=== PATIENT | male | born 1945 | race Caucasian/White ===

== ENCOUNTER 2017-11-01 13:48 | Emergency (ER) | payer MEDICARE, BC ==
[2017-11-01 14:49] LABS: BILIRUBIN,URINE NEGATIVE (NEGATIVE); GLUCOSE, URINE (UA) NEGATIVE (NEGATIVE); KETONES,URINE (UA) 15 mg/dL (NEGATIVE); LEUKOCYTE ESTERASE, URINE MODERATE (NEGATIVE); NITRITE,URINE POSITIVE (NEGATIVE); OCCULT BLOOD,URINE LARGE (NEGATIVE); PH,URINE 5.5 PH (5.0-7.5); PROTEIN,URINE 30 mg/dL (NEGATIVE); UROBILINOGEN,URINE 0.2 (NORMAL) E.U./dL (NORMAL)
[2017-11-01 14:50] LABS: CLARITY,URINE CLOUDY (CLEAR)
[2017-11-01 15:19] LABS: BACTERIA,URINE Many /HPF (None Seen); RBC,URINE TNTC /HPF (0-5); SQUAMOUS EPITHELIAL CELL,UR NONE SEEN (<= Few)
[2017-11-01 15:53] LABS: BASOPHILS # (AUTO) 0.1 10^3/uL (0.0-0.1); BASOPHILS % (AUTO) 0.4 %; EOSINOPHILS % (AUTO) 0.1 %; HGB - HEMOGLOBIN 13.8 g/dL (14.0-18.0); LYMPHOCYTES # (AUTO) 1.3 10^3/uL (1.5-3.5); LYMPHOCYTES % (AUTO) 7.3 %; MEAN CORPUSCULAR HEMOGLOBIN 30.5 pg (27.0-31.0); MEAN CORPUSCULAR HGB CONC 33.6 g/dL (32.0-36.0); MEAN CORPUSCULAR VOLUME 90.8 fL (80.0-94.0); MEAN PLATELET VOLUME 6.4 fL (7.4-11.4); MONOCYTES % (AUTO) 5.8 %; NEUTROPHILS # (AUTO) 15.1 10^3/uL (1.5-6.6); NEUTROPHILS % (AUTO) 86.4 %; PLT - PLATELET COUNT 202 10^3/uL (130-450); RED BLOOD COUNT 4.52 10^6/uL (4.70-6.10); RED CELL DISTRIBUTION WIDTH 12.5 % (12.0-15.0); WHITE BLOOD COUNT 17.5 x10^3/uL (4.8-10.8)
[2017-11-01 16:08] LABS: ALBUMIN 4.2 g/dL (3.2-5.5); ALBUMIN/GLOBULIN RATIO 1.3 (1.0-2.2); ALKALINE PHOSPHATASE 61 IU/L (42-121); ALT ALANINE AMINOTRANSFERASE 23 IU/L (10-60); AST ASPARTATE AMINOTRANSFERASE 21 IU/L (10-42); BILIRUBIN,TOTAL 0.8 mg/dL (0.2-1.0); BUN - BLOOD UREA NITROGEN 18 mg/dL (6-20); CALCIUM 9.3 mg/dL (8.5-10.3); CARBON DIOXIDE - CO2 24 mmol/L (21-32); CHLORIDE 101 mmol/L (101-111); CREATININE 0.9 mg/dL (0.6-1.2); GFR - MDRD 83 (>89); GLUCOSE 200 mg/dL (70-100); SODIUM 136 mmol/L (135-145); TOTAL PROTEIN 7.5 g/dL (6.7-8.2)
[2017-11-01 16:09] LABS: LIPASE < 10 U/L (22-51)
--- NOTE | 2017-11-01 16:28 | ED Physician Documentation ---
History of Present Illness - Stated complaint Stated Complaint: BLOOD IN URINE - Chief complaint Chief Complaint: General - Additonal information Additional information: hx from pt 72 male to ER with hematuria, ryan low back / flank pain an dL testicular pain X 1 day generally feeling ill and "flu like" for a week no fever cough NVD on plavix Review of Systems Constitutional: denies: Fever, Chills Cardiac: denies: Chest pain / pressure Respiratory: denies: Dyspnea GI: denies: Abdominal Pain, Nausea, Vomiting, Diarrhea : reports: Dysuria, Hesitancy, Hematuria, Testicular pain Musculoskeletal: reports: Back pain Immunocompromised: denies: Immunocompromised PD PAST MEDICAL HISTORY - Past Medical History Cardiovascular: High cholesterol Neuro: CVA, Seizure disorder Endocrine/Autoimmune: Type 2 diabetes : Benign prostate hypertrophy Musculoskeletal: Osteoarthritis - Past Surgical History General: Appendectomy Ortho: Spine surgery HEENT: Cataracts, Tonsil/Adenoidectomy - Present Medications Home Medications: Ambulatory Orders Medication Instructions Recorded Confirmed Atorvastatin [Lipitor] 11/01/17 Ciprofloxacin HCl [Cipro] 500 mg PO BID #20 tablet 11/01/17 Clopidogrel Bisulfate [Clopidogrel] 11/01/17 Finasteride [Proscar] 11/01/17 Insulin Glargine [Lantus Solostar] 11/01/17 Levetiracetam [Keppra] 11/01/17 Losartan Potassium 11/01/17 Metformin HCl [Fortamet] 11/01/17 Tamsulosin [Flomax] 11/01/17 - Allergies Allergies/Adverse Reactions: Allergies Allergy/AdvReac Type Severity Reaction Status Date / Time No Known Drug Allergies Allergy Verified 11/01/17 14:05 - Social History Does the pt smoke?: No Smoking Status: Never smoker Does the pt drink ETOH?: No Does the pt have substance abuse?: No PD ED PE NORMAL - Vitals Vital signs reviewed: Yes - General General: Alert and oriented X 3 - Neck Neck: Supple, no meningeal sign - Cardiac Cardiac: RRR - Respiratory Respiratory: No respiratory distress, Clear bilaterally - Abdomen Abdomen: Soft, Non tender, Other (no pulsatile mass) - Male Male : Other (L testes nl lie no mass but very TTP) - Back Back: No CVA TTP (mild bilateral) - Derm Derm: Normal color - Neuro Neuro: Alert and oriented X 3 Results - Vitals Vitals: Vital Signs - 24 hr 11/01/17 11/01/17 11/01/17 14:03 16:04 18:11 Temperature 37.1 C 36.8 C 37.4 C Heart Rate 102 H 81 84 Respiratory 18 18 14 Rate Blood Pressure 126/81 H 157/78 H 125/72 O2 Saturation 95 95 94 Oxygen O2 Source Room air - Labs Labs: Laboratory Tests 11/01/17 11/01/17 11/01/17 14:14 15:46 15:46 WBC 17.5 H RBC 4.52 L Hgb 13.8 L Hct 41.0 L MCV 90.8 MCH 30.5 MCHC 33.6 RDW 12.5 Plt Count 202 MPV 6.4 L Neut # 15.1 H Lymph # 1.3 L Rankin # 1.0 Eos # 0.0 Baso # 0.1 Absolute Nucleated RBC 0.00 Nucleated RBC % 0.0 Sodium 136 Potassium 4.7 Chloride 101 Carbon Dioxide 24 Anion Gap 11.0 BUN 18 Creatinine 0.9 Estimated GFR (MDRD) 83 L Glucose 200 H Calcium 9.3 Total Bilirubin 0.8 AST 21 ALT 23 Alkaline Phosphatase 61 Total Protein 7.5 Albumin 4.2 Globulin 3.3 Albumin/Globulin Ratio 1.3 Lipase < 10 L Urine Color BROWN Urine Clarity CLOUDY Urine pH 5.5 Ur Specific [place] >=1.030 H Urine Protein 30 H Urine Glucose (UA) NEGATIVE Urine Ketones 15 H Urine Occult Blood LARGE H Urine Nitrite POSITIVE H Urine Bilirubin NEGATIVE Urine Urobilinogen 0.2 (NORMAL) Ur Leukocyte Esterase MODERATE H Urine RBC TNTC H Urine WBC >25 H Ur Squamous Epith Cells NONE SEEN Urine Bacteria Many H Ur Microscopic Review INDICATED Urine Culture Comments INDICATED - Rads (name of study) CT AP stone study Radiology: See rad report (bladder base filling defect contiguous with prostate and concerning for neoplasm, unremarkable kidneys, no stones, other chronic or incidental findings such as old transverse process fxs at L1-L4) sono Radiology: See rad report (small ryan hydrocele, bilateral microcalcifications doubtful clinical significance, small right paratesticualr nodule non specific, ddx includes fibrous pseudotumor + others er radia, rec fup exam in 6 m (pt advised)) Departure - Departure Disposition: 01 Home, Self Care Clinical Impression: UTI (urinary tract infection) Qualifiers: Urinary tract infection type: site unspecified Hematuria presence: with hematuria Qualified Code(s): N39.0 - Urinary tract infection, site not specified ; R31.9 - Hematuria, unspecified; R31.9 - Hematuria, unspecified Hematuria Qualifiers: Hematuria type: unspecified type Qualified Code(s): R31.9 - Hematuria, unspecified Instructions: ED UTI Cystitis Male Follow-Up: [facility] [Provider Group] Prescriptions: Ciprofloxacin HCl [Cipro] 500 mg PO BID #20 tablet Comments: The urine test showed blood and also an infection - so we started antibiotics. The CT scan did not show any kidney stones but did show an abnormal prostate which will need further work up by the urologist to be sure there is not a prostate cancer. The ultrasound did not show any tumors, just a little bit of fluid around the testicles and a small nodule on the right and the radiologist recommends a repeat ultrasound in 6 months to recheck the nodule Your kidney function was fine on your blood work. You hemoglobin level was fine - you have not lost too much blood Your white blood cell count was elevated which is consistent with an infection So it is OK for you to go home on an antibiotic. I chose cipro because it penetrates the prostate well. But the class of antibiotics that cipro belongs to (the quinolones) can have side effects including nerve and tendon damage - if you develop any pains in your joints please stop the antibiotic right away and call your PMD or the ER to change to another antibiotic You should also take a probiotic while on cipro to prevent diarrhea Most importantly you need to follow up with a urologist for further evaluation and care of this infection an the abnormal prostate - please call the [facility] line to make an appointment with the urologists. Depending on your insurance, you may need a referral from your PMD
--- NOTE | 2017-11-01 18:17 | Ultrasound Report ---
EXAM: SCROTAL ULTRASOUND EXAM DATE: 11/01/2017 04:18 PM. CLINICAL HISTORY: L testicular pain. COMPARISON: None. TECHNIQUE: Real-time scanning was performed with static images obtained. Both color-flow and Doppler spectral analysis were utilized. FINDINGS: Right: Testis: 4.3 x 2.7 x 2.4 cm. Several microcalcifications. Otherwise unremarkable parenchyma. Normal va scularity. Epididymis: 0.9 x 0.9 x 0.6 cm. Small cysts measuring 0.6 x 0.5 x 0.9 cm and 0.7 x 0.7 x 0.7 cm. Othe rwise unremarkable. Hydrocele: Trace hydrocele. Varicocele: None. Left: Testis: 3.7 x 2.5 x 2.9 cm. Several microcalcifications. Otherwise unremarkable parenchyma. Normal va scularity. Epididymis: 1.2 x 0.9 x 0.7 cm. Normal size and echotexture. No mass or abnormal blood flow. Hydrocele: Small hydrocele. Varicocele: None. Other: Slightly lobulated right paratesticular nodule measuring 0.7 x 0.3 x 0.3 cm. This may be relat ed to the inner surface of the scrotal wall. IMPRESSION: 1. Small left hydrocele; trace right hydrocele. 2. Several bilateral microcalcifications, a nonspecific finding of doubtful clinical significance. 3. Small right paratesticular nodule, also a nonspecific finding. Differential considerations include fibrous pseudotumor and several other possibilities. Follow-up exam in about 6 months is recommended to evaluate stability of this finding. [facility] Referring Provider Line: [phone] SITE ID: [id number]
--- NOTE | 2017-11-01 18:24 | CT Report ---
EXAM: CT ABDOMEN AND PELVIS (CT KUB) EXAM DATE: 11/01/2017 05:48 PM. CLINICAL HISTORY: Back pain to l testicle and hematuria. COMPARISONS: None. TECHNIQUE: Routine axial helical CT imaging was performed through the abdomen and pelvis without IV c ontrast. Reconstructions: Coronal and sagittal. In accordance with CT protocol optimization, one or more of the following dose reduction techniques w ere utilized for this exam: automated exposure control, adjustment of mA and/or KV based on patient s ize, or use of iterative reconstructive technique. FINDINGS: Lung Bases: Unremarkable. Right Kidney/Ureter: No stones, hydronephrosis, or hydroureter. No perinephric fat stranding. Left Kidney/Ureter: No stones, hydronephrosis, or hydroureter. No perinephric fat stranding. Other Solid Organs: Noncontrast images of the solid organs are grossly unremarkable. Gallbladder/Bile Ducts: Unremarkable. Peritoneal Cavity: No free fluid, free air or ivette adenopathy. Unremarkable region of appendix. Mild diverticulosis. Bowel otherwise is grossly unremarkable. Pelvic Organs: Masslike filling defect in the bladder base measuring about 4 cm in diameter, contiguo us with the prostate and possibly arising from it. Otherwise unremarkable. Vasculature: Unremarkable. Other: Degenerative changes. Old ununited right transverse process fractures of L1-L4. IMPRESSION: 1. Bladder base filling defect contiguous with the prostate, suspicious for neoplasm. 2. Unremarkable kidneys; no stone or hydronephrosis. 3. Other chronic or incidental findings. [facility] Referring Provider Line: [phone] SITE ID: [id number]
[2017-11-01] MEDS ORDERED: CIPROFLOXACIN 250 MG TABLET PO STA (18:45)
[2017-11-01 19:50] VITALS: BP 139/73
== END 2017-11-01 19:55 | disposition home or self-care (01) ==
LOC: ED 13:48
DX: N39.0 Urinary tract infection, site not specified (principal); R31.9 Hematuria, unspecified; E78.00 Pure hypercholesterolemia, unspecified; E11.9 Type 2 diabetes mellitus without complications; Z79.4 Long term (current) use of insulin; Z86.73 Personal history of transient ischemic attack (TIA), and cerebral infarction without residual deficits
CPT/HCPCS: 36415; 74176; 76870; 80053; 81001; 83690; 85025; 87086; 93975; 99283; 99284; A9270; 80048; 81003

== ENCOUNTER 2018-06-21 09:57 | Outpatient (CLI) | payer MEDICARE, BC ==
[2018-06-21 10:33] LABS: BASOPHILS # (AUTO) 0.1 10^3/uL (0.0-0.1); BASOPHILS % (AUTO) 0.7 %; EOSINOPHILS # (AUTO) 0.2 10^3/uL (0.0-0.7); EOSINOPHILS % (AUTO) 2.9 %; HGB - HEMOGLOBIN 13.8 g/dL (14.0-18.0); LYMPHOCYTES # (AUTO) 1.9 10^3/uL (1.5-3.5); LYMPHOCYTES % (AUTO) 22.5 %; MEAN CORPUSCULAR HEMOGLOBIN 31.2 pg (27.0-31.0); MEAN CORPUSCULAR HGB CONC 34.5 g/dL (32.0-36.0); MEAN CORPUSCULAR VOLUME 90.5 fL (80.0-94.0); MEAN PLATELET VOLUME 6.7 fL (7.4-11.4); MONOCYTES # (AUTO) 0.6 10^3/uL (0.0-1.0); MONOCYTES % (AUTO) 7.3 %; NEUTROPHILS # (AUTO) 5.6 10^3/uL (1.5-6.6); NEUTROPHILS % (AUTO) 66.6 %; PLT - PLATELET COUNT 226 10^3/uL (130-450); RED BLOOD COUNT 4.42 10^6/uL (4.70-6.10); RED CELL DISTRIBUTION WIDTH 12.8 % (12.0-15.0); WHITE BLOOD COUNT 8.5 x10^3/uL (4.8-10.8)
[2018-06-21 10:52] LABS: ALBUMIN 3.9 g/dL (3.2-5.5); ALBUMIN/GLOBULIN RATIO 1.3 (1.0-2.2); BILIRUBIN,TOTAL 0.7 mg/dL (0.2-1.0); CALCIUM 9.1 mg/dL (8.5-10.3); CREATININE 0.8 mg/dL (0.6-1.2); TOTAL PROTEIN 6.9 g/dL (6.7-8.2)
== END 2018-06-21 09:58 | disposition home or self-care (01) ==
LOC: LAB 09:57
PROVIDERS: ATTEND Psychiatry & Neurology Neurology
DX: G40.909 Epilepsy, unspecified, not intractable, without status epilepticus (principal)
CPT/HCPCS: 36415; 80053; 80175; 85025

== ENCOUNTER 2018-07-13 08:59 | Outpatient (CLI) | payer MEDICARE, BC ==
[2018-07-13 09:28] LABS: BASOPHILS % (AUTO) 0.6 %; EOSINOPHILS # (AUTO) 0.2 10^3/uL (0.0-0.7); EOSINOPHILS % (AUTO) 2.8 %; HGB - HEMOGLOBIN 13.8 g/dL (14.0-18.0); LYMPHOCYTES # (AUTO) 1.8 10^3/uL (1.5-3.5); MEAN CORPUSCULAR HEMOGLOBIN 31.1 pg (27.0-31.0); MEAN CORPUSCULAR HGB CONC 34.6 g/dL (32.0-36.0); MEAN PLATELET VOLUME 6.7 fL (7.4-11.4); MONOCYTES # (AUTO) 0.6 10^3/uL (0.0-1.0); MONOCYTES % (AUTO) 7.6 %; NEUTROPHILS # (AUTO) 4.7 10^3/uL (1.5-6.6); PLT - PLATELET COUNT 215 10^3/uL (130-450); RED BLOOD COUNT 4.42 10^6/uL (4.70-6.10); RED CELL DISTRIBUTION WIDTH 12.9 % (12.0-15.0); WHITE BLOOD COUNT 7.3 x10^3/uL (4.8-10.8)
[2018-07-13 09:41] LABS: ALBUMIN 4.2 g/dL (3.2-5.5); ALBUMIN/GLOBULIN RATIO 1.4 (1.0-2.2); BILIRUBIN,TOTAL 0.8 mg/dL (0.2-1.0); CALCIUM 9.3 mg/dL (8.5-10.3); CREATININE 0.8 mg/dL (0.6-1.2); TOTAL PROTEIN 7.3 g/dL (6.7-8.2)
== END 2018-07-13 09:00 | disposition home or self-care (01) ==
LOC: LAB 08:59
PROVIDERS: ATTEND Psychiatry & Neurology Neurology
DX: G40.909 Epilepsy, unspecified, not intractable, without status epilepticus (principal)
CPT/HCPCS: 36415; 80053; 80175; 85025

== ENCOUNTER 2022-07-11 16:15 | Outpatient (CLI) | payer MEDICARE, BC | END 2022-07-11 16:16 | disposition critical access hospital (66) | LOC: EMS 16:15 | DX: R53.1 Weakness (principal); R30.0 Dysuria; R39.198 Other difficulties with micturition; R50.9 Fever, unspecified | CPT/HCPCS: A0425; A0427 ==

== ENCOUNTER 2022-07-19 12:45 | Emergency (ER) | payer MEDICARE, BC ==
--- OUTSIDE RECORDS SUMMARY | 2022-07-19 13:14 | EXTERNAL MEDICAL SUMMARY RPT | Continuity of Care Document ---
:1945 Author Organization [facility] Address [address] [place] [address] Phone Care Team Providers Name Role Phone Unavailable Unavailable Unavailable NurseJaqui Unavailable Unavailable NurseJaqui Unavailable Unavailable Allergies No information. Encounters No information. Functional Status No information. Immunizations No information. Medications date description facility [id number]+0000 azithromycin All 23843383555187+0000 azithromycin All 66390958612539+0000 insulin glargine All 99172318536512+0000 insulin glargine All 59569187456107+0000 tramadol All 44310647044061+0000 tramadol All 35468361400217+0000 finasteride All 53133007197611+0000 finasteride All 42409003466648+0000 levetiracetam All 93565726135973+0000 levetiracetam All 69727508931788+0000 azithromycin All 73854692191429+0000 azithromycin All 51517617207818+0000 tamsulosin All 59408218177455+0000 tamsulosin All 69297699266662+0000 insulin glargine All 64431787447700+0000 insulin glargine All 93964519385789+0000 azithromycin All 02493511100622+0000 azithromycin All 13409845206349+0000 atorvastatin All 73836246572483+0000 atorvastatin All 38074134536111+0000 insulin glargine All 41371211868312+0000 insulin glargine All 83621886358536+0000 metformin All 34463001022164+0000 metformin All 26265571359618+0000 finasteride All 17254705460561+0000 finasteride All 27615029080371+0000 clopidogrel All 96101015593722+0000 clopidogrel All 98266776611176+0000 finasteride All 52613219801693+0000 finasteride All 80951863719839+0000 levetiracetam All 94777038869432+0000 levetiracetam All 48460468450402+0000 zolpidem All 69179231340928+0000 zolpidem All 00521391198796+0000 losartan All 53377789690123+0000 losartan All 75618181106835+0000 tramadol All 34801925611701+0000 tramadol All 49071770174530+0000 atorvastatin All 95792974978855+0000 atorvastatin All 07584828843003+0000 losartan All 31521618836293+0000 losartan All 93099861414156+0000 pseudoephedrine hcl All 45371191102236+0000 pseudoephedrine hcl All 70223112486167+0000 azithromycin All 28335217877912+0000 azithromycin All 06432879343492+0000 clopidogrel All 87957980419212+0000 clopidogrel All 58564010717715+0000 zolpidem All 22660413486521+0000 zolpidem All 19338671585935+0000 finasteride All 92241169704619+0000 finasteride All 40832679229617+0000 tamsulosin All 35219132358764+0000 tamsulosin All 51013487825186+0000 zolpidem All 59077128525319+0000 zolpidem All 30144798231325+0000 clopidogrel All 91376622753947+0000 clopidogrel All 79000041516652+0000 levetiracetam All 93835609893357+0000 levetiracetam All 29925762146545+0000 metformin All 14816387022005+0000 metformin All 02625200875667+0000 atorvastatin All 04450240413537+0000 atorvastatin All 10844890743895+0000 tamsulosin All 06583266079174+0000 tamsulosin All 16987085412088+0000 tramadol All 63974191803330+0000 tramadol All 54668055322565+0000 atorvastatin All 81942058557210+0000 atorvastatin All 57760901114087+0000 metformin All 80645120142929+0000 metformin All 48733449862155+0000 losartan All 78436135187572+0000 losartan All 86009771283084+0000 levetiracetam All 47907556958164+0000 levetiracetam All 87008279116331+0000 tramadol All 04933931817040+0000 tramadol All 55911693445118+0000 insulin glargine All 74402770795862+0000 insulin glargine All 38287504860586+0000 clopidogrel All 15045590553863+0000 clopidogrel All 86876393503887+0000 zolpidem All 80748904007228+0000 zolpidem All 79433588149962+0000 metformin All 94810953579971+0000 metformin All 24152586212726+0000 tamsulosin All 40117288698770+0000 tamsulosin All 47924755435600+0000 losartan All 35595006883203+0000 losartan All Problems No information. Procedures date description facility [id number]+0000 Visit Code Hold All 84642106889619+0000 Visit Code Hold All 95927232566551+0000 POC STREP TEST All 83332166889617+0000 POC STREP TEST All Results/Labs No information. Social History date description facility 05333818714781+0000 Unknown if ever smoked All 83374847019597+0000 Unknown if ever smoked All Vital Signs date measurement value units 24751080712908+0000 BMI BMI 32.67 kg/m2 84514029579028+0000 BP_diastolic BP_diastolic 74 mmHg 09453865255237+0000 BP_systolic BP_systolic 120 mmHg 39881289077109+0000 heart_rate heart_rate 92 /min 22710469173792+0000 height_metric height_metric 182.88 cm 92336375475982+0000 height_standard height_standard 72 in 10789125340835+0000 respiration_rate respiration_rate 16 /min 22924947125701+0000 temperature_metric temperature_metric 37.11 C 85214302490548+0000 temperature_standard temperature_standard 9 8.8 F 41382518980580+0000 weight_metric weight_metric 108.86 kg 85429502051709+0000 weight_standard weight_standard 240 lb
[2022-07-19 15:23] LABS: BILIRUBIN,URINE NEGATIVE (NEGATIVE); GLUCOSE, URINE (UA) NEGATIVE (NEGATIVE); KETONES,URINE (UA) NEGATIVE (NEGATIVE); LEUKOCYTE ESTERASE, URINE SMALL (NEGATIVE); NITRITE,URINE NEGATIVE (NEGATIVE); OCCULT BLOOD,URINE LARGE (NEGATIVE); PH,URINE 5.5 PH (5.0-7.5); PROTEIN,URINE TRACE mg/dL (NEGATIVE); UROBILINOGEN,URINE 0.2 (NORMAL) E.U./dL (NORMAL)
[2022-07-19 15:25] LABS: CLARITY,URINE CLOUDY (CLEAR)
[2022-07-19 15:33] LABS: BACTERIA,URINE Rare /HPF (None Seen); RBC,URINE TNTC /HPF (0-5); SQUAMOUS EPITHELIAL CELL,UR RARE Squamous (<= Few)
--- NOTE | 2022-07-19 15:48 | ED Physician Documentation ---
PD HPI MALE - Stated complaint Stated Complaint: MALE - Chief complaint Chief Complaint: UTI - History obtained from History obtained from: Patient - Additional information Additional information: 77-year-old gentleman with history of BPH had a multilevel laminectomy June 13 at [facility]. Subsequently and related to his catheterization perioperatively he developed 5 days of hematuria with clots. That went away but was seen by my partner about a week ago for dysuria and hematuria and. Had a positive urinalysis and was prescribed Keflex, subsequently changed to Vantin after sensitivities. He was doing okay but developed more hematuria today with dysuria. No fevers, flank pain, chills, rectal pain, or pain with bowel movement. Review of Systems Constitutional: reports: Reviewed and negative Nose: reports: Reviewed and negative Cardiac: reports: Reviewed and negative PD PAST MEDICAL HISTORY - Past Medical History Cardiovascular: High cholesterol Endocrine/Autoimmune: Type 2 diabetes : Benign prostate hypertrophy Musculoskeletal: Osteoarthritis - Past Surgical History General: Appendectomy Ortho: Spine surgery HEENT: Cataracts, Tonsil/Adenoidectomy - Present Medications Home Medications: Ambulatory Orders Medication Instructions Recorded Confirmed Atorvastatin [Lipitor] 11/01/17 Ciprofloxacin HCl [Cipro] 500 mg PO BID #20 tablet 11/01/17 Clopidogrel Bisulfate [Clopidogrel] 11/01/17 Finasteride [Proscar] 11/01/17 Insulin Glargine [Lantus Solostar] 11/01/17 Levetiracetam [Keppra] 11/01/17 Losartan Potassium 11/01/17 Metformin HCl [Fortamet] 11/01/17 Tamsulosin [Flomax] 11/01/17 cephALEXin [Keflex] 500 mg PO Q6H #20 cap 07/11/22 Ciprofloxacin HCl [Cipro] 500 mg PO BID #20 tablet 07/19/22 - Allergies Allergies/Adverse Reactions: Allergies Allergy/AdvReac Type Severity Reaction Status Date / Time diphenhydramine Allergy Unknown Verified 07/19/22 13:02 [From Benadryl] - Social History Does the pt smoke?: No Smoking Status: Never smoker Does the pt drink ETOH?: No Does the pt have substance abuse?: No PD ED PE NORMAL - Vitals Vital signs reviewed: Yes - General General: Alert and oriented X 3, No acute distress - Abdomen Abdomen: Normal bowel sounds, Soft, Non tender - Male Male : Other (Bedside ultrasound shows a thick-walled bladder with a large mass emanating from the posterior wall of the bladder. This was discussed with the patient.) - Neuro Neuro: Alert and oriented X 3, Normal speech Results - Vitals Vitals: Vital Signs - 24 hr 07/19/22 07/19/22 12:57 15:56 Temperature 36.5 C 36.6 C Heart Rate 92 89 Respiratory 16 16 Rate Blood Pressure 146/76 H 129/81 H O2 Saturation 97 97 Oxygen O2 Source Room air - Labs Labs: Laboratory Tests 07/19/22 13:15 Urine Color BROWN Urine Clarity CLOUDY Urine pH 5.5 Ur Specific [place] 1.025 Urine Protein TRACE Urine Glucose (UA) NEGATIVE Urine Ketones NEGATIVE Urine Occult Blood LARGE H Urine Nitrite NEGATIVE Urine Bilirubin NEGATIVE Urine Urobilinogen 0.2 (NORMAL) Ur Leukocyte Esterase SMALL H Urine RBC TNTC H Urine WBC 11-25 H Ur Squamous Epith Cells RARE Squamous Urine Bacteria Rare Ur Microscopic Review INDICATED Urine Culture Comments INDICATED PD MEDICAL DECISION MAKING - ED course ED course: Discussed with patient's that on bedside ultrasound he does have what looks like a large bladder mass, and needs urology follow-up. Will trial Cipro in the interim but he understands that antibiotics will not cure that. Departure - Departure Disposition: 01 Home, Self Care Clinical Impression: Bladder mass Hematuria Qualifiers: Hematuria type: gross Qualified Code(s): R31.0 - Gross hematuria Condition: Good Prescriptions: Ciprofloxacin HCl [Cipro] 500 mg PO BID #20 tablet Comments: As discussed, you were seen today for recalcitrant UTI associated with blood in the urine. Unfortunately on bedside ultrasound today I do see a decent sized mass in your bladder. Call your urologist at the [facility] today or tomorrow for expedited follow-up for cystoscopy or what ever other work-up they think is appropriate. Return for new or worsening symptoms. I sent your prescription electronically to [facility] in [place]. Discharge Date/Time: 07/19/22 15:58
[2022-07-19 15:57] VITALS: BP 129/81
--- NOTE | 2022-07-20 16:16 | ED Physician Documentation ---
ED Addendum - Addendum Addendum: 07/20/22 16:16 RN took call from , the Cipro was making his voice horse so I changed him over to Macrobid 100 mg p.o. twice daily #20 and E prescribed to [facility] in [place].
== END 2022-07-19 15:58 | disposition home or self-care (01) ==
LOC: ED 12:45
DX: N32.89 Other specified disorders of bladder (principal); R31.0 Gross hematuria; R30.0 Dysuria; N40.0 Benign prostatic hyperplasia without lower urinary tract symptoms; E11.9 Type 2 diabetes mellitus without complications; Z79.4 Long term (current) use of insulin; Z79.84 Long term (current) use of oral hypoglycemic drugs
CPT/HCPCS: 81001; 81003; 87086; 99283

== ENCOUNTER 2023-03-17 16:30 | Outpatient (CLI) | payer MEDICARE, BC | END 2023-03-17 16:45 | disposition home or self-care (01) | LOC: LAB.N 16:30 | PROVIDERS: ATTEND Nurse Practitioner | DX: N39.0 Urinary tract infection, site not specified (principal) | CPT/HCPCS: 87077; 87086; 87181 ==

== ENCOUNTER 2023-04-13 08:06 | Outpatient (CLI) | payer MEDICARE, BC ==
[2023-04-13 08:19] LABS: BASOPHILS # (AUTO) 0.1 10^3/uL (0.0-0.1); BASOPHILS % (AUTO) 0.8 %; EOSINOPHILS # (AUTO) 0.6 10^3/uL (0.0-0.7); EOSINOPHILS % (AUTO) 8.7 %; HCT - HEMATOCRIT 41.7 % (42.0-52.0); HGB - HEMOGLOBIN 13.6 g/dL (14.0-18.0); LYMPHOCYTES % (AUTO) 27.3 %; MEAN CORPUSCULAR HEMOGLOBIN 30.2 pg (27.0-31.0); MEAN CORPUSCULAR HGB CONC 32.6 g/dL (32.0-36.0); MEAN CORPUSCULAR VOLUME 92.7 fL (80.0-94.0); MEAN PLATELET VOLUME 8.4 fL (7.4-11.4); MONOCYTES # (AUTO) 0.7 10^3/uL (0.0-1.0); NEUTROPHILS # (AUTO) 3.9 10^3/uL (1.5-6.6); NEUTROPHILS % (AUTO) 52.8 %; PLT - PLATELET COUNT 215 10^3/uL (130-450); RED CELL DISTRIBUTION WIDTH 12.2 % (12.0-15.0); WHITE BLOOD COUNT 7.4 x10^3/uL (4.8-10.8)
[2023-04-13 08:32] LABS: ALBUMIN/GLOBULIN RATIO 1.5 (1.0-2.2); ALKALINE PHOSPHATASE 88 IU/L (42-121); ALT ALANINE AMINOTRANSFERASE 20 IU/L (10-60); AST ASPARTATE AMINOTRANSFERASE 17 IU/L (10-42); BILIRUBIN,TOTAL 0.4 mg/dL (0.2-1.0); BUN - BLOOD UREA NITROGEN 18 mg/dL (6-20); CARBON DIOXIDE - CO2 29 mmol/L (21-32); CHLORIDE 105 mmol/L (101-111); CHOL/HDL RATIO 2.6 (<5.0); CHOLESTEROL 95 mg/dL; CREATININE 0.9 mg/dL (0.6-1.3); GFR - MDRD 82 (>89); GLUCOSE 117 mg/dL (74-104); HDL CHOLESTEROL 36 mg/dL; LDL CHOLESTEROL,CALCULATED 42 mg/dL; LDL/HDL RATIO 1.2 (<3.6); POTASSIUM 4.4 mmol/L (3.5-4.5); SODIUM 138 mmol/L (135-145); TOTAL PROTEIN 6.6 g/dL (6.4-8.9); TRIGLYCERIDES 85 mg/dL (48-352); VLDL CHOLESTEROL 17 mg/dL
[2023-04-13 11:23] LABS: ESTIMATED AVERAGE GLUCOSE 171 mg/dL (70-100); HEMOGLOBIN A1c% 7.6 % (4.27-6.07)
== END 2023-04-13 08:07 | disposition home or self-care (01) ==
LOC: LAB 08:06
PROVIDERS: ATTEND Nurse Practitioner
DX: E11.9 Type 2 diabetes mellitus without complications (principal); E78.2 Mixed hyperlipidemia
CPT/HCPCS: 36415; 80053; 80061; 83036; 83721; 85025

== ENCOUNTER 2023-06-05 07:46 | Outpatient (CLI) | payer MEDICARE, BC ==
[2023-06-05 08:04] LABS: BASOPHILS # (AUTO) 0.1 10^3/uL (0.0-0.1); BASOPHILS % (AUTO) 0.7 %; EOSINOPHILS # (AUTO) 0.5 10^3/uL (0.0-0.7); EOSINOPHILS % (AUTO) 6.5 %; HCT - HEMATOCRIT 42.5 % (42.0-52.0); HGB - HEMOGLOBIN 13.9 g/dL (14.0-18.0); LYMPHOCYTES % (AUTO) 25.5 %; MEAN CORPUSCULAR HGB CONC 32.7 g/dL (32.0-36.0); MEAN CORPUSCULAR VOLUME 91.8 fL (80.0-94.0); MEAN PLATELET VOLUME 8.3 fL (7.4-11.4); MONOCYTES # (AUTO) 0.7 10^3/uL (0.0-1.0); NEUTROPHILS # (AUTO) 4.5 10^3/uL (1.5-6.6); NEUTROPHILS % (AUTO) 57.9 %; PLT - PLATELET COUNT 207 10^3/uL (130-450); RED BLOOD COUNT 4.63 10^6/uL (4.70-6.10); RED CELL DISTRIBUTION WIDTH 12.4 % (12.0-15.0); WHITE BLOOD COUNT 7.7 x10^3/uL (4.8-10.8)
[2023-06-05 08:23] LABS: ALBUMIN 4.1 g/dL (3.2-5.5); ALBUMIN/GLOBULIN RATIO 1.5 (1.0-2.2); ALKALINE PHOSPHATASE 84 IU/L (42-121); ALT ALANINE AMINOTRANSFERASE 19 IU/L (10-60); AST ASPARTATE AMINOTRANSFERASE 18 IU/L (10-42); BILIRUBIN,TOTAL 0.5 mg/dL (0.2-1.0); BUN - BLOOD UREA NITROGEN 19 mg/dL (6-20); CALCIUM 9.3 mg/dL (8.5-10.3); CARBON DIOXIDE - CO2 29 mmol/L (21-32); CHLORIDE 104 mmol/L (101-111); CHOL/HDL RATIO 2.6 (<5.0); CHOLESTEROL 104 mg/dL; CREATININE 0.9 mg/dL (0.6-1.3); GFR - MDRD 82 (>89); GLUCOSE 92 mg/dL (74-104); HDL CHOLESTEROL 40 mg/dL; LDL CHOLESTEROL,CALCULATED 46 mg/dL; LDL/HDL RATIO 1.2 (<3.6); POTASSIUM 4.6 mmol/L (3.5-4.5); SODIUM 139 mmol/L (135-145); TOTAL PROTEIN 6.9 g/dL (6.4-8.9); TRIGLYCERIDES 89 mg/dL (48-352); VLDL CHOLESTEROL 18 mg/dL
[2023-06-05 08:25] LABS: CREATININE,URINE 65.2 mg/dL; MICROALBUM/CREATININE RATIO,UR 38.3 ug/mg (<30.0); MICROALBUMIN,URINE 2.5 mg/dL
[2023-06-05 10:19] LABS: ESTIMATED AVERAGE GLUCOSE 163 mg/dL (70-100); HEMOGLOBIN A1c% 7.3 % (4.27-6.07)
== END 2023-06-05 07:47 | disposition home or self-care (01) ==
LOC: LAB 07:46
PROVIDERS: ATTEND Nurse Practitioner
DX: I10 Essential (primary) hypertension (principal); E78.2 Mixed hyperlipidemia; E11.9 Type 2 diabetes mellitus without complications; R26.81 Unsteadiness on feet
CPT/HCPCS: 36415; 80053; 80061; 82043; 82570; 82607; 83036; 83721; 85025

== ENCOUNTER 2023-08-17 09:57 | Outpatient (CLI) | payer MEDICARE, BC ==
[2023-08-17 11:10] LABS: ESTIMATED AVERAGE GLUCOSE 160 mg/dL (70-100); HEMOGLOBIN A1c% 7.2 % (4.27-6.07)
== END 2023-08-17 09:58 | disposition home or self-care (01) ==
LOC: LAB 09:57
PROVIDERS: ATTEND Nurse Practitioner
DX: E11.9 Type 2 diabetes mellitus without complications (principal)
CPT/HCPCS: 36415; 83036

== ENCOUNTER 2024-04-09 12:27 | Outpatient (CLI) | payer MEDICARE, BC ==
--- NOTE | 2024-04-09 15:19 | XRAY Report ---
Cervical Spine 4-5V HISTORY: 78 years of age, CERVICAL RADICULOPATHY TECHNIQUE: Cervical Spine 4-5V COMPARISON: None. FINDINGS/IMPRESSION: Straightening of the cervical spine. Mild retrolisthesis of C2 on C3, C3 on C4. Mild retrolisthesis o f C4 on C5 and C5 on C6. Lateral view is visualized to the level of C6. Visualized vertebral body hei ghts are well-maintained. No prevertebral soft tissue edema. Open mouth view is nondiagnostic. Moderate right, mild left cervical facet arthropathy. Right osseous neuroforaminal stenosis: Mild at C3-4, moderate at C4-5, severe at C5-6, moderate C6-7. Left osseous neuroforaminal stenosis: Moderate at C3-4, severe at C4-5, moderate at C5-6, severe at C 6-7. Bilateral proximal internal carotid artery calcification, severe on the right and moderate on the lef t. Reviewed by: Casandra Luke MD on 04/09/2024 3:18 PM PDT Approved by: Casandra Luke MD on 04/09/2024 3:18 PM PDT Station ID: [id number]
== END 2024-04-09 12:28 | disposition home or self-care (01) ==
LOC: DI 12:27
PROVIDERS: ATTEND Family Medicine
DX: M43.12 Spondylolisthesis, cervical region (principal); M47.22 Other spondylosis with radiculopathy, cervical region; M48.02 Spinal stenosis, cervical region; I65.23 Occlusion and stenosis of bilateral carotid arteries

== ENCOUNTER 2024-05-11 07:39 | Outpatient (CLI) | payer MEDICARE, BC ==
--- NOTE | 2024-05-13 12:19 | MRI Report ---
PROCEDURE: Cervical Spine WO INDICATIONS: CERVICAL RADICULOPATHY TECHNIQUE: Multiplanar multisequential MRI of the cervical spine was obtained without contrast. COMPARISON: None. FINDINGS: Alignment and Curvature: There is normal bony alignment. Bone Marrow: Marrow demonstrates normal overall signal. Spinal Cord: Visualized spinal cord has normal size and signal. No cerebellar tonsillar herniation. Paraspinal Soft Tissues: No paravertebral masses. Prevertebral soft tissues are normal in thickness . C2-C3: No central or foraminal stenosis. C3-C4: Arthropathy. No left foraminal stenosis. Posterior disc osteophyte complex results in mild ce ntral stenosis. Moderate right foraminal stenosis. C4-C5: Arthropathy. Mild central stenosis. Moderate right and no left foraminal stenosis C5-C6: Arthropathy. Mild central stenosis. Moderate right and moderate left foraminal stenosis C6-C7: Arthropathy in posterior disc osteophyte complex. Mild central stenosis. Moderate bilateral f oraminal stenosis C7-T1: Arthropathy. Mild central stenosis. No foraminal stenosis IMPRESSION: Multilevel degenerative disc disease and arthropathy results in moderate foraminal stenosis at C4-5, C5-6 and C6-7 Reviewed by: Julian Evans MD on 05/13/2024 11:18 AM RYLEY Approved by: Julian Evans MD on 05/13/2024 11:18 AM RYLEY Station ID: [id number]
== END 2024-05-11 07:40 | disposition home or self-care (01) ==
LOC: DI 07:39
PROVIDERS: ATTEND Nurse Practitioner
DX: M47.22 Other spondylosis with radiculopathy, cervical region (principal); M47.23 Other spondylosis with radiculopathy, cervicothoracic region; M50.11 Cervical disc disorder with radiculopathy, high cervical region; M48.02 Spinal stenosis, cervical region

== ENCOUNTER 2024-05-14 07:34 | Outpatient (CLI) | payer MEDICARE, BC ==
[2024-05-14 10:13] LABS: ESTIMATED AVERAGE GLUCOSE 194 mg/dL (70-100); HEMOGLOBIN A1c% 8.4 % (4.27-6.07)
== END 2024-05-14 07:35 | disposition home or self-care (01) ==
LOC: LAB 07:34
PROVIDERS: ATTEND Nurse Practitioner
DX: E11.42 Type 2 diabetes mellitus with diabetic polyneuropathy (principal)
CPT/HCPCS: 36415; 83036

== ENCOUNTER 2024-05-18 12:41 | Outpatient (CLI) | payer MEDICARE, BC ==
--- NOTE | 2024-05-19 07:30 | Ultrasound Report ---
PROCEDURE: Carotid Doppler Complete INDICATIONS: CAROTID ARTERY STENOSIS TECHNIQUE: Color and pulse Doppler interrogation was performed of both carotid systems, with image documentation and velocity measurements. COMPARISON: MRI cervical spine without contrast 05/11/2024 FINDINGS: Right side: Brachial blood pressure: 142/67 mm Hg. Common carotid artery peak systolic velocity: 41 cm/sec. Internal carotid artery peak systolic velocity: 78 cm/sec. Internal carotid artery end diastolic velocity: 25 cm/sec. External carotid artery peak systolic velocity: 83 cm/sec. ICA/CCA peak systolic ratio: 1.9 . Dempsey scale imaging description: Mild atherosclerotic plaque. Tortuosity of the internal carotid michael ry. Percent internal carotid artery stenosis: Less than 50 percent stenosis. Vertebral artery: Not identified Left side: Brachial blood pressure: 123/62 mm Hg. Common carotid artery peak systolic velocity: 69 cm/sec. Internal carotid artery peak systolic velocity: 71 cm/sec. Internal carotid artery end diastolic velocity: 14 cm/sec. External carotid artery peak systolic velocity: 85 cm/sec. ICA/CCA peak systolic ratio: 1.0 . Dempsey scale imaging description: Mild atherosclerotic plaque. Tortuosity of the internal carotid michael ry. Percent internal carotid artery stenosis: Less than 50 percent stenosis. Vertebral artery: Flow direction is antegrade. IMPRESSION: 1. In the right internal carotid artery, there is less than 50 percent stenosis based on peak systoli c velocity criteria. 2. In the left internal carotid artery, there is less than 50 percent stenosis based on peak systolic velocity criteria. 3. Nonvisualization of the right vertebral artery. 4. Antegrade blood flow within the left vertebral artery. The estimate of stenosis included in the report of the imaging study was calculated using the [facility]-end orsed standards of carotid artery stenosis. Reviewed by: Geoff Bacon MD on 05/19/2024 7:29 AM PDT Approved by: Geoff Bacon MD on 05/19/2024 7:29 AM PDT Station ID: [id number]
== END 2024-05-18 12:42 | disposition home or self-care (01) ==
LOC: DI 12:41
PROVIDERS: ATTEND Nurse Practitioner
DX: I65.23 Occlusion and stenosis of bilateral carotid arteries (principal)
CPT/HCPCS: 93880